=== PATIENT | female | born 1965 | race Caucasian/White ===

== ENCOUNTER → 2017-07-17 | Outpatient (CLI) | payer BC ==
--- NOTE | 2017-07-18 08:01 | MM ---
Reason for exam: screening (asymptomatic). Last mammogram was performed 11 years ago. History: Patient is postmenopausal. Physical Findings: A clinical breast exam by your physician is recommended on an annual basis and results should be correlated with mammographic findings. MG 3D Screening Mammo W/Cad Bilateral CC and MLO view(s) were taken. Prior study comparison: July 26, 2006, bilateral screening mammogram w/CAD. The breast tissue is heterogeneously dense. This may lower the sensitivity of mammography. Stable benign calcifications. There is no discrete abnormality. No significant changes when compared with prior studies. ASSESSMENT: Benign, BI-RAD 2 RECOMMENDATION: Routine screening mammogram of both breasts in 1 year.
== END | disposition home or self-care (01) ==
LOC: RADMAMWWP 07:42
PROVIDERS: ATTEND Internal Medicine
DX: Z12.31 Encounter for screening mammogram for malignant neoplasm of breast (principal)
CPT/HCPCS: 77063; 77067

== ENCOUNTER → 2018-11-13 | Outpatient (CLI) | payer BC ==
--- NOTE | 2018-11-14 11:14 | MM ---
Reason for exam: screening (asymptomatic). Last mammogram was performed 1 year and 4 months ago. History: Patient is postmenopausal. Physical Findings: A clinical breast exam by your physician is recommended on an annual basis and results should be correlated with mammographic findings. MG 3D Screening Mammo W/Cad Bilateral CC and MLO view(s) were taken. XCCL view(s) were taken of the right breast. Prior study comparison: July 17, 2017, bilateral MG 3d screening mammo w/cad. July 26, 2006, bilateral screening mammogram w/CAD. The breast tissue is extremely dense which could obscure a lesion on mammography. Benign appearing bilateral calcifications. No suspicious abnormality. No significant changes when compared with prior studies. ASSESSMENT: Benign, BI-RAD 2 RECOMMENDATION: Routine screening mammogram of both breasts in 1 year.
== END ==
LOC: RADMAMWWP 11:39
PROVIDERS: ATTEND Internal Medicine
DX: Z12.31 Encounter for screening mammogram for malignant neoplasm of breast (principal)
CPT/HCPCS: 77063; 77067

== ENCOUNTER → 2021-07-16 | Outpatient (CLI) | payer BC ==
[2021-07-16 11:02] LABS: Basophils # (A) 0.04 X 10*3/uL (0.00-0.10); Basophils % (A) 1.3 %; Eosinophils # (A) 0.08 X 10*3/uL (0.04-0.35); Eosinophils % (A) 2.6 %; HCT 40.4 % (37.2-46.3); Lymphocytes # (A) 1.36 X 10*3/uL (0.90-5.00); Lymphocytes % (A) 43.5 %; MCH 28.9 pg (27.0-32.0); MCHC 32.2 g/dL (32.0-37.0); MCV 89.8 fL (80.0-97.0); Mean Platelet Volume 11.8 fL (9.5-12.2); Monocytes # (A) 0.29 X 10*3/uL (0.20-1.00); Monocytes % (A) 9.3 %; Neutrophils # (A) 1.36 X 10*3/uL (1.80-7.70); Neutrophils % (A) 43.3 %; Platelet Count 157 X 10*3/uL (140-440); RDW 11.9 % (11.5-14.5); WBC 3.13 X 10*3/uL (4.50-10.00)
[2021-07-16 11:17] LABS: African American GFR (CKD) 116.8 (60.0-200.0); Anion Gap 9.6 mmol/L (10.00-18.00); BUN/Creat Ratio 23.51 Ratio (12.00-20.00); Blood Urea Nitrogen 14.6 mg/dL (9.0-27.0); Calcium 9.1 mg/dL (8.7-10.3); Carbon Dioxide 26.5 mmol/L (20.0-27.5); Non-African American GFR(CKD) 100.8 (60.0-200.0); Potassium 4.4 mmol/L (3.5-5.5)
[2021-07-16 11:22] LABS: INR 0.94 (0.90-1.11); Prothrombin Time 10.4 sec (9.9-11.9)
== END | disposition home or self-care (01) ==
LOC: LABPAT 07:08
PROVIDERS: ATTEND Orthopaedic Surgery
DX: Z01.812 Encounter for preprocedural laboratory examination (principal); I21.4 Non-ST elevation (NSTEMI) myocardial infarction; M16.11 Unilateral primary osteoarthritis, right hip; R94.31 Abnormal electrocardiogram [ECG] [EKG]
CPT/HCPCS: 36415; 80048; 85025; 85610; 93005

== ENCOUNTER 2021-07-26 06:25 | Day surgery (SDC) | payer BC ==
[2021-07-22 13:40] VITALS: BMI 23.0
--- NOTE | 2021-07-25 11:46 | HP ---
HISTORY AND PHYSICAL DATE OF SURGERY: 07/26/2021 Debbie Rincon is a 55-year-old patient seen with symptomatic right hip osteoarthritis. We discussed options for treatment. She elected to proceed with direct anterior right total hip arthroplasty. Consent was obtained. PAST MEDICAL HISTORY: Noncontributory. PAST SURGICAL HISTORY: Left total hip arthroplasty, left shoulder rotator cuff repair, tonsillectomy. DAILY MEDICATIONS: Vitamins and Aleve. ALLERGIES: NONE REPORTED. SOCIAL HISTORY: She denies tobacco use. PHYSICAL EVALUATION OF THE RIGHT HIP: She has limited range of motion with diffuse tenderness. Positive hip impingement sign. Straight-leg raise negative. Limited range of motion of right hip with severe pain. Distal neurovascular exam is intact. Radiographs of the right hip revealed severe osteoarthritic changes. IMPRESSION: Right hip osteoarthritis. PLAN: Direct anterior right total hip arthroplasty. MMODL / IJN: [id number] /
[~2021-07-26 06:25] MED LIST: ACETAMINOPHEN TAB 500 MG TAB PO PRN; DEXAMETHASONE SOD PHOSPHATE 4 MG/ML 1 ML VIAL IV ONE; LACTATED RINGERS 1,000 ML IV SCH; MELOXICAM 7.5 MG TAB PO PRN; MIDAZOLAM 2 MG/2 ML VIAL IV PRN; ONDANSETRON 4 MG/2 ML VIAL IVP ONE; SCOPOLAMINE 1.5MG/72HR PATCH TRANSDERM ONE; TRANEXAMIC ACID 1,000 MG in SODIUM CHLORIDE 0.9% 100 ML IVPB PRN
[2021-07-26] MEDS ORDERED: HYDROmorphone 0.5 MG/0.5 ML SYRINGE IVP PRN ×2 (07:00→08:57)
[2021-07-26 07:24] VITALS: TEMP 97.6
[2021-07-26] MEDS ORDERED: ROCURONIUM 10 MG/ML (5 ML VIAL) IV ONE (07:25)
[2021-07-26] MEDS ORDERED: SUCCINYLCHOLINE CHLORIDE 100 MG/5 ML SYR IV ONE (07:25)
[2021-07-26] MEDS ORDERED: GLYCOPYRROLATE 0.2 MG/ML 2 ML VIAL ONE (07:25)
[2021-07-26] MEDS ORDERED: fentaNYL (PF) 50 MCG/ML 2 ML AMP ONE (07:25)
[2021-07-26] MEDS ORDERED: SODIUM CHLORIDE 0.9% 100 ML BAG ONE (07:25)
[2021-07-26] MEDS ORDERED: TRANEXAMIC ACID 1,000 MG/10 ML VIAL ONE (07:25)
[2021-07-26] MEDS ORDERED: MIDAZOLAM 2 MG/2 ML VIAL ONE (07:25)
[2021-07-26] MEDS ORDERED: LIDOCAINE 1% INJ 10MG/ML (20 ML MDV) ONE (07:25)
[2021-07-26] MEDS ORDERED: PROPOFOL 10 MG/ML 20 ML VIAL IV ONE (07:25)
[2021-07-26] MEDS ORDERED: PHENYLEPHRINE-0.9% NACL SYG 1,000 MCG/10 ML SYRINGE ONE (07:25)
[2021-07-26] MEDS ORDERED: NEOSTIGMINE 1 MG/ML 10 ML VIAL ONE (07:25)
[2021-07-26] MEDS ORDERED: ROPIVACAINE/EPI/CLONIDINE/KET 50 ML SYRINGE MISCELLANE PRN (07:32)
[2021-07-26] MEDS ORDERED: ceFAZolin 3,000 MG in SODIUM CHLORIDE 0.9% IRRIGATIO 3,000 ML IRRIGATION ONE (08:08)
[2021-07-26] MEDS ORDERED: LACTATED RINGERS 1,000 ML IV ONE ×2 (08:41→08:57)
[2021-07-26] MEDS ORDERED: HYDROcodone/APAP 7.5-325MG 1 EACH TAB PO PRN (08:57)
[2021-07-26] MEDS ORDERED: ONDANSETRON 4 MG/2 ML VIAL IVP PRN (08:57)
[2021-07-26] MEDS ORDERED: HYDROcodone/APAP 5-325MG 1 EACH TAB PO PRN (08:57)
[2021-07-26] MEDS ORDERED: HYDROmorphone 0.2 MG/1 ML SYRINGE IVP PRN (08:57)
[2021-07-26] MEDS ORDERED: HYDROmorphone 1 MG/ML 1 ML SYRINGE IVP PRN (08:57)
[2021-07-26] MEDS ORDERED: NALOXONE 0.4 MG/ML 1 ML VIAL IV PRN (08:57)
--- NOTE | 2021-07-26 08:57 | P.OP ---
Date of Procedure: 07/26/21 Preoperative Diagnosis: Right hip osteoarthritis Postoperative Diagnosis: Right hip osteoarthritis Procedure(s) Performed: Direct anterior right total hip arthroplasty Implants: 1. Depuy Corail KA with collar size 12 press-fit femoral stem 2. Depuy [place] 52 mm press-fit acetabular shell 3. Depuy pinnacle neutral plantar acetabular liner 36 mm ID 50 mm OD 4. Biolox delta ceramic femoral head +1.5 36 mm Anesthesia: TORO, local Surgeon: Matt Topete Bass Guitar Teacher #1: Brian Nolan Estimated Blood Loss (ml): 125 Pathology: other (Femoral head) Condition: stable Disposition: PACU Indications for Procedure: 55-year-old patient seen with symptomatic right hip osteoarthritis. After having treatment options discussed, she elected to proceed with direct anterior total hip arthroplasty. Operative Findings: See description of procedure Description of Procedure: The patient was taken to the operative suite. Patient underwent a general anesthetic by the department of anesthesia. Patient was then transferred to the [place] table. Patient was given preoperative IV antibiotics and TXA. Both lower extremities were placed in standard leg spars. The hip was then prepped and draped in the normal sterile orthopedic fashion. A standard anterior incision was made beginning 3 cm lateral and 1 cm distal to the ASIS extending 10 cm. Dissection was then carried down through the subcutaneous soft tissues down to the fascia overlying the tensor fascia gela. An incision was now made through the fascia. Careful dissection was taken down exposing the tensor fascia gela muscle. A Cobra retractor was now placed along the medial femoral neck and a second one along the lateral femoral neck. The venous circumflex vessels were now identified, cauterized and clipped. We identified the anterior hip capsule. An incision was made through the hip capsule along the lateral border. I performed a partial anterior capsulectomy. Retractors were now placed around the femoral neck itself. A femoral neck cut was now made with a sagittal saw. It was completed with an osteotome at the lateral neck area. The femoral head was now removed without difficulty. The extremity was now rotated to 60 of external rotation. It was locked in position. Residual labrum was now debrided out. Serial reaming was performed of the acetabulum while Brian COLBY assisted holding an anterior retractor for exposure. Once we reached the appropriate size and a trial was position and fit nicely. The appropriate size was now chosen opened and made available. It was introduced into the acetabulum without difficulty. The C-arm/fluoroscopy was now brought into the operative field. We made sure we had a true AP pelvic view. We now under direct C- arm/fluoroscopy introduced into the acetabular component with appropriate version and inclination. I held the cup in appropriate position while Brian COLBY used a mallet to seat the acetabular component. I noted the component now to be well seated and stable. Acetabular cup introduce her was removed. The C-arm was pulled back. An appropriate liner was introduced and clicked into position. It was felt to be stable. At this point retractors were removed. The extremity was now placed into 140 external rotation with no traction. The leg was now dropped to the ground and adducted. Appropriate retractors were now positioned along the proximal femur. We also placed our femoral look into position. Additional capsular releasing was performed to gain access to the proximal femur. We now used a box osteotome. A canal finder was now utilized. Serial broaching was now performed with the assistance of Brian COLBY tapping the broaches down with a mallet while held the broach in appropriate rotation and position. This was done until we reached the appropriate size with good overall rotational stability. Appropriate calcar planing was performed. A trial head/neck was placed into position. The hip was now reduced. The C- arm/fluoroscopy was brought back into the operative field. I obtained AP pelvis demonstrating adequate ligament alignment the trial components appeared appropriately sized and positioned.. The C-arm/fluoroscopy was pulled back. Retractors were repositioned and the hip was dislocated. The leg was again taken down to the ground and adducted. Appropriate retractors were repositioned as well as the femoral hook. All trial components were removed. The femoral implant was opened along with the femoral head. The femoral implant was introduced on the appropriate handle into our pre-broached area. I held the component position well Nicho COLBY used a mallet to seat the femoral component. The femoral component was now noted to be well seated and stable. The femoral head was introduced with good positioning and fixation noted. Retractors were now removed. The hip was now reduced. There appeared be good positioning of the hip confirmed on intraoperative fluoroscopy. Spot films were obtained to document this. A second gram of TXA was given. The deep and superficial soft tissues were infiltrated with local analgesic. Bipolar cautery had been utilized intermittently through the procedure for hemostasis. The wound was irrigated copiously with pulse lavage mechanical irrigation. The fascia was repaired with Vicryl suture. The subcutaneous soft tissues were repaired in layers with Vicryl suture. The skin was approximated with pernio/Dermabond. Sterile dressings were applied. Patient was then awakened, transferred to a bed and taken to recovery in stable condition. Brian COLBY assisted with the complex procedure.
--- NOTE | 2021-07-26 10:17 | FL ---
EXAMINATION TYPE: FL guidance operating room, XR Hip Limited RT DATE OF EXAM: 07/26/2021 COMPARISON: NONE HISTORY: 55-year-old female with right hip osteoarthrosis, hip replacement FINDINGS: Intraoperative fluoroscopy during anterior right frontal arthroplasty. FLUOROSCOPY Fluoroscopy time of 9 seconds was used during anterior right hip replacement. 4 image/s document/s t he procedure. IMPRESSION: Intraoperative fluoroscopy as above.
[2021-07-26 12:16] VITALS: RESP 16
[2021-07-26 12:54] LABS: Glucose,Whole Blood 131 mg/dL (75-99)
[2021-07-26 13:26] VITALS: BP 147/84; PULSE 79
== END 2021-07-26 13:54 | disposition home health service (06) ==
LOC: OR 06:25
PROVIDERS: ATTEND Orthopaedic Surgery
DX: M16.11 Unilateral primary osteoarthritis, right hip (principal); Z20.822 Contact with and (suspected) exposure to COVID-19
CPT/HCPCS: 27130; 97110; 97161; 86900; 86901; 86850; 88300; 87635; 73501; C1776; J2250; J1100; J2710; J0690 ×2; J2405; J2001; J3010; J2370; J0330; J2704